=== PATIENT | male | born 1970 | race Caucasian/White ===

== ENCOUNTER → 2016-08-12 | Outpatient (CLI) | payer OTHER ==
--- NOTE | 2016-08-12 21:21 | REP ---
Clinical: Left groin pain. Technique: Real time malin scale ultrasound examination using linear high frequency transducer. Findings: The right inguinal canal on normal respiration and Valsalva is without evidence for herniation. Surrounding soft tissues are unremarkable and there is no evidence for fluid collection, mass lesion or adenopathy. The left inguinal canal on normal respiration and Valsalva demonstrates fat and soft tissue structure extending into the internal ring which was reducible on transducer pressure and suggests small hernia. Impression: Findings suggest a small reducible left inguinal hernia at the internal ring which may include small amount of fat and soft tissue/musculature. No definite bowel is identified herniating during examination. Signed by Luis Crespo MD 08/12/2016 09:13 P
== END ==
LOC: M RAD 10:28
PROVIDERS: ATTEND Physician Assistant
DX: K40.90 Unilateral inguinal hernia, without obstruction or gangrene, not specified as recurrent (principal)

== ENCOUNTER 2016-10-23 07:19 | Day surgery (SDC) | payer OTHER ==
[~2016-10-23] VITALS: Ht 188 cm; Wt 90.7 kg
[2016-10-23] MEDS ORDERED: LR 1,000 ML IV ONE (07:45)
[2016-10-23] MEDS ORDERED: LR 1,000 ML IV SCH ×2 (07:45→12:00)
[2016-10-23] MEDS ORDERED: PROPOFOL 200 MG/20 ML VIAL As Ordered ONE (09:20)
[2016-10-23] MEDS ORDERED: LIDOCAINE 2% INJ 100 MG/5 ML SDV (FOR ANES.) As Ordered ONE (09:20)
[2016-10-23] MEDS ORDERED: fentaNYL 250 MCG/5 ML INJECTION (J3010) As Ordered ONE (09:21)
[2016-10-23] MEDS ORDERED: MIDAZOLAM INJ 2 MG/2 ML VIAL (J2250) As Ordered ONE (09:21)
[2016-10-23] MEDS ORDERED: BUPIVACAINE HCL 0.25% 30 ML VIAL As Ordered ONE (09:22)
[2016-10-23] MEDS ORDERED: LIDOCAINE 1% SDV INJ 30 ML VIAL As Ordered ONE (09:22)
[2016-10-23] MEDS ORDERED: METOCLOPRAMIDE INJ 10MG/2ML VIAL (J2765) As Ordered ONE (10:07)
[2016-10-23] MEDS ORDERED: dexameTHASONE 4 MG/ML 1ML VIAL (J1100) As Ordered ONE (10:07)
[2016-10-23] MEDS ORDERED: KETOROLAC 60 MG/2 ML VIAL (J1885) As Ordered ONE (10:18)
[2016-10-23] MEDS ORDERED: HYDROmorphone HCL 2 MG/ML 1ML VIAL (J1170) As Ordered ONE (10:19)
[2016-10-23] MEDS ORDERED: LABETALOL HCL 100 MG/20 ML VIAL As Ordered ONE (11:03)
[2016-10-23] MEDS ORDERED: fentaNYL 100 MCG/2 ML INJECTION (J3010) IV PRN (12:00)
[2016-10-23] MEDS ORDERED: ONDANSETRON 4MG/2ML VIAL (J2405) IV PRN (12:00)
[2016-10-23] MEDS ORDERED: NORCO, ANEXSIA 5/325MG TABLET (HYDROcodone/ACETAMINOPHEN) PO PRN (12:00)
[2016-10-23] MEDS ORDERED: PERCOCET 5MG/325MG TAB As Ordered ONE (12:02)
[2016-10-23] MEDS: PERCOCET 5MG/325MG TAB PO PRN ×2 (12:08→13:15)
[2016-10-23 13:45] VITALS: BP 118/57
[2016-10-23] MEDS ORDERED: IBUPROFEN 600 MG TAB PO PRN (18:00)
--- NOTE | 2016-10-25 14:28 | RO ---
DATE OF PROCEDURE: 10/23/2016 PREOPERATIVE DIAGNOSIS: Left inguinal hernia. POSTOPERATIVE DIAGNOSIS: Left inguinal hernia. PROCEDURE PERFORMED: Left inguinal herniorrhaphy with Ultrapro mesh. SURGEON: Dr. Sadiq Lord ANESTHESIA: General with LMA. INDICATIONS FOR PROCEDURE: The patient is a 45-year-old man who has had some left inguinal discomfort. He had been studied with some imaging, and there was a suggestion of some fatty tissue in the left inguinal canal. Initially his discomfort was mild and he monitored this. He subsequently returned complaining that he had noticed increased discomfort. He did not have a definite hernia bulge beyond the external ring, but there did appear to be some fullness in the inguinal canal and he is now scheduled for a left inguinal herniorrhaphy. DESCRIPTION OF PROCEDURE: The patient was placed under general anesthesia using an LMA. The patient's lower abdomen, groins and genitalia were prepped and draped in a sterile fashion. An approximately 8-10 cm left lower quadrant skin incision was made obliquely over the course of the inguinal canal. This was deepened through the subcutaneous tissues using the cautery. The external oblique was exposed and opened in the direction of its fibers into the external ring. The spermatic cord was then isolated. He was found to have some fibrofatty tissue protruding at the internal ring along the spermatic cord. This fibrofatty tissue was dissected free from the cord up into the internal ring where it was transected with the cautery and this was sent as a permanent specimen, labeled preperitoneal fat. Interestingly, there was a small protrusion of fibrofatty tissue as essentially a direct hernia slightly medial to the normal course of the inguinal canal, but coming directly through the internal oblique muscle. This was about 2 cm in length and less than a centimeter in diameter. This was also excised, and this small defect was closed with several simple sutures of #2-0 Ethibond. A 6 x 11 cm piece of Ultrapro mesh was selected. This was lot number [id number]. This was trimmed to fit the inguinal floor. It was placed over the inguinal floor and sutured at the pubic tubercle with a #3-0 Prolene, which was carried along the lateral border of the mesh, suturing this to the shelving edge of the inguinal ligament. Medially, the mesh was tacked down to the underlying internal oblique with interrupted simple sutures of #3-0 Vicryl. The tails of the mesh were overlapped lateral to the spermatic cord and sutured with #3-0 Vicryl. This appeared to give a nice reinforcement of the inguinal floor. Approximately 20 mL of 0.25% Marcaine were infiltrated about the wound. The external oblique was closed with a running suture of #0 Vicryl. The subcutaneous tissues were approximated with #3-0 chromic and the skin edges were approximated with a running subcuticular #4-0 Vicryl and Steri-Strips. The patient tolerated the procedure well without apparent complication. He was awakened in the operating room, extubated and moved to the recovery room in stable condition. LIUDMILA
== END 2016-10-23 14:05 | disposition home or self-care (01) ==
LOC: M SDC 07:19
PROVIDERS: ATTEND Surgery
DX: K40.90 Unilateral inguinal hernia, without obstruction or gangrene, not specified as recurrent (principal); F17.210 Nicotine dependence, cigarettes, uncomplicated
CPT/HCPCS: 49585; 88302; C1781; J1100; J1170; J1885; J2250; J2765; J3010

== ENCOUNTER → 2017-10-19 | Outpatient (CLI) | payer BC | LOC: M RAD 13:31 | DX: M25.511 Pain in right shoulder (principal) | CPT/HCPCS: 73030 ==

== ENCOUNTER → 2018-08-13 | Outpatient (CLI) | payer BC ==
--- NOTE | 2018-08-13 14:28 | REP ---
Clinical: Abnormal pulmonary function tests . Comparison: 07/04/2013 . Technique: PA and lateral. Findings: The mediastinum and cardiac silhouette are normal. The lung moore are clear and without acute consolidation, effusion, or pneumothorax. The skeletal structures are intact and normal. Impression: 1. No acute cardiopulmonary process. Electronically Signed by Luis Crespo MD 08/13/2018 02:20 P
== END ==
LOC: M RAD 12:45
PROVIDERS: ATTEND Physician Assistant
DX: R94.2 Abnormal results of pulmonary function studies (principal)

== ENCOUNTER 2018-08-16 10:31 | Day surgery (SDC) | payer BC ==
[~2018-08-16] VITALS: Ht 188 cm; Wt 97.1 kg
[2018-08-16] MEDS ORDERED: LR 1,000 ML IV ONE (11:30)
[2018-08-16] MEDS ORDERED: fentaNYL 250 MCG/5 ML INJECTION (J3010) As Ordered ONE (12:36)
[2018-08-16] MEDS ORDERED: PROPOFOL 200 MG/20 ML VIAL As Ordered ONE (12:36)
[2018-08-16] MEDS ORDERED: MIDAZOLAM INJ 2 MG/2 ML VIAL (J2250) As Ordered ONE (12:36)
[2018-08-16] MEDS ORDERED: ROCURONIUM BROMIDE 50 MG/5 ML VIAL As Ordered ONE (12:36)
[2018-08-16] MEDS ORDERED: LIDOCAINE 2% INJ 100 MG/5 ML SDV (FOR ANES.) As Ordered ONE (12:36)
[2018-08-16] MEDS ORDERED: ONDANSETRON 4MG/2ML VIAL (J2405) As Ordered ONE (13:47)
[2018-08-16] MEDS ORDERED: KETOROLAC 60 MG/2 ML VIAL (J1885) As Ordered ONE (13:47)
[2018-08-16] MEDS ORDERED: dexameTHASONE 4 MG/ML 1ML VIAL (J1100) As Ordered ONE (13:47)
[2018-08-16] MEDS ORDERED: SUGAMMADEX SODIUM 500 MG/5 ML VIAL (BRIDION) As Ordered ONE (13:51)
[2018-08-16] MEDS ORDERED: ePHEDrine SULFATE 25 MG/5 ML(5MG/ML) SYRINGE As Ordered ONE (13:58)
[2018-08-16] MEDS: LIDOCAINE W/EPINEPHRINE 1% 20ML VIAL As Ordered ONE (14:06)
[2018-08-16] MEDS: CIPRODEX OTIC SUSP 7.5ML As Ordered ONE (14:06)
[2018-08-16] MEDS: EPINEPHrine 1MG/ML INJ 30ML MD-VIAL As Ordered ONE (14:06)
[2018-08-16] MEDS ORDERED: METOCLOPRAMIDE INJ 10MG/2ML VIAL (J2765) IV PRN (14:15)
[2018-08-16] MEDS ORDERED: LR 1,000 ML IV SCH ×2 (14:15)
[2018-08-16] MEDS ORDERED: ACETAMINOPH W/CODEINE #3 TAB UD PO PRN (14:15)
[2018-08-16] MEDS ORDERED: fentaNYL 100 MCG/2 ML INJECTION (J3010) IV PRN (14:15)
--- NOTE | 2018-08-16 14:36 | RO ---
DATE OF PROCEDURE: 08/16/2018 PREOPERATIVE DIAGNOSIS: Stenosis right external auditory canal. POSTOPERATIVE DIAGNOSIS: Stenosis right external auditory canal. OPERATIVE PROCEDURE: Right meatoplasty. SURGEON: Enrique Muse MD PROCUREMENT ENGINEER: ANESTHESIA: General anesthesia. DESCRIPTION OF PROCEDURE: Under general anesthesia, the ear was cleaned with Betadine and saline. I infiltrated with lidocaine with epinephrine. I made an incision the periosteum. I then removed the bone both with a curette and with a drill. I drilled down the anterior wall so I had a good view of the tympanic membrane. There was a lot of debris behind the area, which I cleaned with suction and irrigation. Tympanic membrane was intact. I returned the skip flap to its original position. The patient tolerated the procedure well. Minimal blood loss. I put Ciprodex drops in the ear and then Autopour dressing. The patient transferred to the recovery room in excellent condition.
[2018-08-16 15:20] VITALS: BP 125/74
== END 2018-08-16 15:30 | disposition home or self-care (01) ==
LOC: M SDC 10:31
PROVIDERS: ATTEND Otolaryngology
DX: H61.301 Acquired stenosis of right external ear canal, unspecified (principal); R06.83 Snoring; R06.02 Shortness of breath; Z72.0 Tobacco use
CPT/HCPCS: 69310; 88304; J1100; J1885; J2250; J2405; J3010

== ENCOUNTER → 2018-11-30 | Outpatient (CLI) | payer BC ==
[~2018-11-30] MED LIST: DOXY100C37 PO; METHACHOLINE KIT (J7674) INH ONE; POLYSOL OP
--- NOTE | 2018-11-30 15:42 | PFTRPT ---
Height: 74.00 Inches Weight: 211.00 Lbs BSA: 2.22 Diagnosis: R06 DATE OF PROCEDURE: 11/30/2018 ORDERED BY: Hilario Graham PA-C INTERPRETATION: Study of excellent technical quality. Under protocol, methacholine was administered. At a dose of 2.5 mg or 13.875 CDUs, a 34% decline in the FEV1 was noted. PC of 0.54 is significant. Flow rates did return to baseline post bronchodilator administration. IMPRESSION: Positive methacholine challenge study. MTDD
== END ==
LOC: M CARPUL 14:54
PROVIDERS: ATTEND Physician Assistant
DX: R06.00 Dyspnea, unspecified (principal); R94.2 Abnormal results of pulmonary function studies
CPT/HCPCS: 94070; J7674

== ENCOUNTER → 2018-12-01 | Outpatient (CLI) | payer BC ==
--- NOTE | 2018-12-02 08:13 | REP ---
Clinical: Dyspnea with abnormal pulmonary function tests. Technique: Axial noncontrast images from the thoracic inlet to the upper abdomen with coronal and sagittal re-formations. Findings: Lung moore demonstrate very subtle early emphysematous changes involving the bilateral upper lobes. Lung moore are otherwise well aerated, relatively symmetric and clear. No acute consolidation, nodule or mass lesion. No pleural effusion. No pneumothorax. No significant adenopathy. Tracheobronchial tree is patent. Mediastinum demonstrates normal thoracic aorta, pulmonary vasculature and heart/pericardium. Surrounding musculoskeletal structures are intact. Impression: Very subtle early emphysematous changes. Electronically Signed by Luis Crespo MD 12/02/2018 08:05 A
== END ==
LOC: M RAD 12:47
PROVIDERS: ATTEND Physician Assistant
DX: R06.00 Dyspnea, unspecified (principal); R94.2 Abnormal results of pulmonary function studies; J43.9 Emphysema, unspecified

== ENCOUNTER → 2018-12-12 | Outpatient (CLI) | payer BC ==
--- NOTE | 2018-12-14 20:41 | SLEEPCENT ---
DATE OF PROCEDURE: 12/12/2018 ORDERED BY: Hilario Graham PA-C Nocturnal polysomnography was performed for evaluation of sleep physiology in this patient with a history of excessive somnolence and nonrestorative sleep. 7 hours and 56 minutes of data were reviewed. There were 312 minutes of sleep identified. Sleep latency was prolonged at 87.5 minutes. Rapid eye movement (REM) latency was prolonged at 185.5 minutes. Sleep architecture showed fragmentation. There were two rapid eye movement (REM) cycles. Overall sleep efficiency was 66.5%. The electrocardiogram showed a sinus rhythm with an average heart rate of 68 beats per minute. EEG showed some alpha intrusion, otherwise normal waveforms for awake and sleep stages. There were 143 respiratory events identified of 10 seconds in duration or greater for an apnea-hypopnea index of 27.5. The events were primarily obstructive; however, 52 of 143 events were central or mixed in nature. The events were not exclusive to sleep stage. They were more frequent in the supine posture. Arousals from respiratory events occurred 7.3 times per hour and oxygen desaturations were seen into the 70s. There was some limb activity but arousals from limb events were few. Snoring was noted over the course of the study. IMPRESSION: Severe complex obstructive sleep apnea syndrome (G47.33, G47.31). Apnea-hypopnea index 27.5. RECOMMENDATIONS: The patient should be encouraged to return to the sleep disorder center for pressure therapy. In the interim alcohol and sedative avoidance should be practiced and caution exercised during the operation of motor vehicles. Given the occurrence of central events, a bilevel device and backup rate may be necessary during titration.
== END ==
LOC: M SLEEP 20:00
PROVIDERS: ATTEND Physician Assistant
DX: R40.0 Somnolence (principal)

== ENCOUNTER → 2018-12-26 | Outpatient (CLI) | payer BC ==
[~2018-12-26] MED LIST changes: -METHACHOLINE KIT (J7674) INH ONE
--- NOTE | 2019-01-01 08:57 | SLEEPCENT ---
DATE OF STUDY: 12/26/2018 ORDERED BY: Luis Graham Nocturnal polysomnography was performed for the titration of pressure therapy in this patient with obstructive sleep apnea syndrome and apnea-hypopnea index of 27.5. For testing, the patient was fit with a ResMed AirFit N20 nasal mask of medium size and 4 cm of water pressure were applied to the circuit and the lights were extinguished. 7 hours and 1 minute of data were reviewed. There were 373.5 minutes of sleep identified. Sleep latency was mildly prolonged at 18 minutes. Rapid eye movement (REM) latency was normal at 62 minutes. Sleep architecture was good with 3 REM cycles. Overall sleep efficiency was 89.7%. The patient's electrocardiogram showed a sinus rhythm with an average heart rate of 54 beats per minute. Electroencephalogram (EEG) showed normal waveforms for awake and sleep. Respiratory events were fully palliated with C-PAP at a pressure +5 and remaining measures of sleep physiology were normal. IMPRESSION: Obstructive sleep apnea syndrome (G47.33). RECOMMENDATION: Nightly use of pressure therapy at 5 cm of water.
== END ==
LOC: M SLEEP 20:00
PROVIDERS: ATTEND Physician Assistant
DX: G47.33 Obstructive sleep apnea (adult) (pediatric) (principal)

== ENCOUNTER 2019-01-04 06:27 | Emergency (ER) | payer BC ==
[~2019-01-04] VITALS: Ht 188 cm; Wt 95.5 kg
[2019-01-04] MEDS ORDERED: DOXY100C37 PO (08:14)
[2019-01-04] MEDS ORDERED: POLYSOL OP (08:14)
[2019-01-04 08:20] VITALS: BP 144/82
== END 2019-01-04 08:45 | disposition home or self-care (01) ==
LOC: M ED 06:27
DX: H04.012 Acute dacryoadenitis, left lacrimal gland (principal); H10.32 Unspecified acute conjunctivitis, left eye; G47.30 Sleep apnea, unspecified; J43.9 Emphysema, unspecified; F17.200 Nicotine dependence, unspecified, uncomplicated; Z79.899 Other long term (current) drug therapy

== ENCOUNTER 2020-02-13 18:50 | Emergency (ER) | payer BC ==
[~2020-02-13] VITALS: Ht 188 cm; Wt 98.6 kg
[2020-02-13] MEDS ORDERED: CHAN1PAK13 PO (19:11)
[2020-02-13] MEDS ORDERED: NYST50SS PO (20:36)
[2020-02-13] MEDS ORDERED: AMOX500C PO (20:36)
[2020-02-13 20:45] VITALS: BP 143/87
[2020-02-13] MEDS ORDERED: AMOXICILLIN 500 MG CAP PO ONE (20:45)
== END 2020-02-13 21:04 | disposition home or self-care (01) ==
LOC: M ED 18:50
DX: J02.0 Streptococcal pharyngitis (principal); B37.0 Candidal stomatitis; F17.200 Nicotine dependence, unspecified, uncomplicated

== ENCOUNTER 2021-05-31 10:41 | Emergency (ER) | payer BC ==
[~2021-05-31] VITALS: Ht 185.4 cm; Wt 103.0 kg
[~2021-05-31 10:41] MED LIST changes: +AMOX500C PO; +CHAN1PAK13 PO; +DOXY-443 PO; -DOXY100C37 PO; +NYST50SS PO
[2021-05-31 10:42] VITALS: BP 122/65
[2021-05-31] MEDS ORDERED: PROPARACAINE 0.5% OPHTH SOL 15ML OS ONE (12:10)
[2021-05-31] MEDS ORDERED: FLUORESCEIN OPHTH 1 MG STRIP OS ONE (12:10)
[2021-05-31] MEDS ORDERED: POLYSOL OP (13:17)
== END 2021-05-31 13:38 | disposition home or self-care (01) ==
LOC: M ED 10:41
DX: T15.02XA Foreign body in cornea, left eye, initial encounter (principal); Y92.89 Other specified places as the place of occurrence of the external cause; Y93.89 Activity, other specified; Z79.899 Other long term (current) drug therapy

== ENCOUNTER 2021-06-06 13:31 | Emergency (ER) | payer BC ==
[~2021-06-06] VITALS: Ht 188 cm; Wt 102.9 kg
[2021-06-06 13:32] VITALS: BP 140/78
== END 2021-06-06 15:39 | disposition home or self-care (01) ==
LOC: M ED 13:31
DX: S62.501B Fracture of unspecified phalanx of right thumb, initial encounter for open fracture (principal); X58.XXXA Exposure to other specified factors, initial encounter; Y92.89 Other specified places as the place of occurrence of the external cause; Y93.89 Activity, other specified; Y99.0 Civilian activity done for income or pay; E11.9 Type 2 diabetes mellitus without complications; I10 Essential (primary) hypertension; F41.9 Anxiety disorder, unspecified; G47.33 Obstructive sleep apnea (adult) (pediatric); J43.9 Emphysema, unspecified; J45.909 Unspecified asthma, uncomplicated; Z87.891 Personal history of nicotine dependence

== ENCOUNTER → 2021-07-22 | Outpatient (CLI) | payer BC | LOC: M RAD 14:05 | PROVIDERS: ATTEND Physician Assistant | DX: Z12.2 Encounter for screening for malignant neoplasm of respiratory organs (principal); Z87.891 Personal history of nicotine dependence; J43.2 Centrilobular emphysema; R91.1 Solitary pulmonary nodule ==

== ENCOUNTER → 2022-03-24 | Outpatient (CLI) | payer BC ==
[~2022-03-24] MED LIST changes: +NYST-38 PO; -NYST50SS PO
[2022-03-24 16:17] LABS: ALBUMIN 3.9 G/DL (3.2-5.2); ALKALINE PHOSPHATASE 80 U/L (46-116); ALT/SGPT 41 U/L (7.0-40); AST/SGOT 24 U/L (<34); BILIRUBIN,TOTAL 0.6 MG/DL (0.3-1.2); BLOOD UREA NITROGEN 16 MG/DL (9-23); CALCIUM LEVEL 9.6 MG/DL (8.5-10.1); CARBON DIOXIDE LEVEL 28 MMOL/L (20-31); CHLORIDE LEVEL 104 MMOL/L (98-107); CHOLESTEROL LEVEL 149 MG/DL (<200); CHOLESTEROL RISK RATIO 2.95 (<5); CREATININE FOR GFR 0.75 MG/DL (0.70-1.30); GLOMERULAR FILTRATION RATE > 60.0 (>56); GLUCOSE, FASTING 133 MG/DL (60-100); HDL CHOLESTEROL 50.5 MG/DL (>40); LDL CHOLESTEROL 71.7 MG/DL (<100); NON-HDL-C 99 MG/DL; POTASSIUM SERUM 4.4 MMOL/L (3.5-5.1); SODIUM LEVEL 138 MMOL/L (136-145); TOTAL PROTEIN 6.9 G/DL (5.7-8.2); TRIGLYCERIDES LEVEL 134 MG/DL (<150)
[2022-03-24 17:45] LABS: HEMOGLOBIN A1c 6.5 % (4.0-6.0)
== END ==
LOC: M LAB 14:55
PROVIDERS: ATTEND Physician Assistant
DX: E11.9 Type 2 diabetes mellitus without complications (principal); E78.5 Hyperlipidemia, unspecified; I10 Essential (primary) hypertension

== ENCOUNTER → 2022-05-07 | Outpatient (CLI) | payer BC ==
[~2022-05-07] MED LIST changes: +BUPR-69 PO; +LEXA1TAB2 PO; +LISI20TA33 PO; +METF500T13 PO; +PROP60CA PO; +ROSU10TA6 PO; +TADA5TAB PO
== END ==
LOC: M LABSMTC 10:10
PROVIDERS: ATTEND Anesthesiology
DX: Z01.812 Encounter for preprocedural laboratory examination (principal); Z11.52 Encounter for screening for COVID-19

== ENCOUNTER 2022-05-12 06:32 | Day surgery (SDC) | payer BC ==
[~2022-05-12] VITALS: Ht 188 cm; Wt 102.5 kg
[~2022-05-12 06:32] MED LIST changes: +NS 1,000 ML IV ONE
[2022-05-12] MEDS ORDERED: GLYCOPYRROLATE INJ 0.2 MG/ML 2 ML VIAL As Ordered ONE (07:08)
[2022-05-12] MEDS ORDERED: propofoL 200 MG/20 ML VIAL As Ordered ONE (07:08)
[2022-05-12] MEDS ORDERED: LIDOCAINE 2% 100MG/5ML SDV (FOR ANES.) As Ordered ONE (07:08)
[2022-05-12] MEDS ORDERED: fentaNYL 100 MCG/2 ML INJECTION As Ordered ONE (07:11)
[2022-05-12 08:22] VITALS: BP 114/59
== END 2022-05-12 08:29 | disposition home or self-care (01) ==
LOC: M OPP 06:32
PROVIDERS: ATTEND Internal Medicine Gastroenterology
DX: Z12.11 Encounter for screening for malignant neoplasm of colon (principal); Z86.010 Personal history of colon polyps; Z80.0 Family history of malignant neoplasm of digestive organs; K63.5 Polyp of colon; K64.8 Other hemorrhoids; K29.70 Gastritis, unspecified, without bleeding; K21.00 Gastro-esophageal reflux disease with esophagitis, without bleeding; J44.9 Chronic obstructive pulmonary disease, unspecified; F32.9 Major depressive disorder, single episode, unspecified; F41.9 Anxiety disorder, unspecified; G47.33 Obstructive sleep apnea (adult) (pediatric); I10 Essential (primary) hypertension; E78.00 Pure hypercholesterolemia, unspecified; Z99.89 Dependence on other enabling machines and devices; Z79.02 Long term (current) use of antithrombotics/antiplatelets; Z79.1 Long term (current) use of non-steroidal anti-inflammatories (NSAID); Z79.51 Long term (current) use of inhaled steroids; Z79.84 Long term (current) use of oral hypoglycemic drugs; Z79.899 Other long term (current) drug therapy
CPT/HCPCS: 43239; 45385; 88305; J3010

== ENCOUNTER → 2022-06-23 | Outpatient (CLI) | payer BC ==
[~2022-06-23] MED LIST changes: -NS 1,000 ML IV ONE
[2022-06-23 16:01] LABS: HEMOGLOBIN A1c 6.9 % (4.0-6.0)
== END ==
LOC: M LAB 14:42
PROVIDERS: ATTEND Physician Assistant
DX: E11.9 Type 2 diabetes mellitus without complications (principal)

== ENCOUNTER → 2022-09-22 | Outpatient (CLI) | payer BC | LOC: M RAD 15:01 | PROVIDERS: ATTEND Physician Assistant | DX: Z87.891 Personal history of nicotine dependence (principal) ==

== ENCOUNTER → 2023-01-05 | Outpatient (CLI) | payer BC ==
[2023-01-05 12:32] LABS: SEMEN APPEARANCE OPAQUE (OPAQUE); SEMEN VISCOSITY VISCOUS (LIQUID); SEMEN VOLUME 1.2 ML (2.0-5.0); SEMEN WBC <=1 M/ml (<=1 M/ml); SEMEN pH 8.5 (7.0-8.0)
== END ==
LOC: M LAB 11:12
PROVIDERS: ATTEND Physician Assistant
DX: E11.9 Type 2 diabetes mellitus without complications (principal); N46.01 Organic azoospermia

== ENCOUNTER → 2023-04-06 | Outpatient (CLI) | payer BC ==
[2023-04-06 15:48] LABS: HEMATOCRIT 42.3 % (42.0-52.0); HEMOGLOBIN 14.4 g/dl (13.5-17.5); MEAN CORPUSCULAR HEMOGLOBIN 30.5 pg (27.0-33.0); MEAN CORPUSCULAR VOLUME 89.6 fl (80.0-96.0); PLATELET COUNT, AUTOMATED 173 10^3/uL (150-450); RED BLOOD COUNT 4.72 10^6/uL (4.30-6.10)
[2023-04-06 16:15] LABS: ALKALINE PHOSPHATASE 84 U/L (46-116); ALT/SGPT 29 U/L (7.0-40); AST/SGOT 9 U/L (<34); BILIRUBIN,TOTAL 0.5 MG/DL (0.3-1.2); BLOOD UREA NITROGEN 17 MG/DL (9-23); CALCIUM LEVEL 9.3 MG/DL (8.5-10.1); CARBON DIOXIDE LEVEL 30 MMOL/L (20-31); CHLORIDE LEVEL 102 MMOL/L (98-107); CHOLESTEROL LEVEL 168 MG/DL (<200); CHOLESTEROL RISK RATIO 3.11 (<5); CREATININE FOR GFR 0.71 MG/DL (0.70-1.30); GLOMERULAR FILTRATION RATE > 60.0 (>56); GLUCOSE, FASTING 130 MG/DL (60-100); LDL CHOLESTEROL 89.4 MG/DL (<100); POTASSIUM SERUM 3.9 MMOL/L (3.5-5.1); SODIUM LEVEL 136 MMOL/L (136-145); TOTAL PROTEIN 7.1 G/DL (5.7-8.2); TRIGLYCERIDES LEVEL 123 MG/DL (<150)
[2023-04-07 07:17] LABS: WHITE BLOOD COUNT 5.8 10^3/uL (4.0-10.0)
== END ==
LOC: M RAD 14:42
PROVIDERS: ATTEND Physician Assistant
DX: E11.9 Type 2 diabetes mellitus without complications (principal); E78.5 Hyperlipidemia, unspecified; N46.01 Organic azoospermia; I10 Essential (primary) hypertension; M79.671 Pain in right foot

== ENCOUNTER → 2023-07-20 | Outpatient (CLI) | payer BC ==
[~2023-07-20] MED LIST changes: +DOXY-323 PO; -DOXY-443 PO; -ROSU10TA6 PO; +ROSU10TA61 PO
== END ==
LOC: M LAB 12:02
PROVIDERS: ATTEND Physician Assistant
DX: E11.9 Type 2 diabetes mellitus without complications (principal)

== ENCOUNTER → 2023-10-26 | Outpatient (REF) | payer BC ==
[2023-10-26 12:10] LABS: SEMEN APPEARANCE OPAQUE (OPAQUE); SEMEN VISCOSITY LIQUID (LIQUID)
[2023-10-26 12:11] LABS: SPERM CONCENTRATION 5.8 M/ml (>=15.0); WBC CONCENTRATION <=1 M/ml (<=1 M/ml)
== END ==
LOC: M LAB REF 11:38
PROVIDERS: ATTEND Obstetrics & Gynecology
DX: N46.9 Male infertility, unspecified (principal)

== ENCOUNTER → 2023-10-26 | Outpatient (CLI) | payer BC ==
[2023-10-26 12:40] LABS: HEMATOCRIT 45.2 % (42.0-52.0); HEMOGLOBIN 15.5 g/dl (13.5-17.5); MEAN CORPUSCULAR HEMOGLOBIN 29.9 pg (27.0-33.0); MEAN CORPUSCULAR HGB CONC 34.3 g/dl (32.0-36.5); MEAN CORPUSCULAR VOLUME 87.1 fl (80.0-96.0); PLATELET COUNT, AUTOMATED 177 10^3/uL (150-450); RED BLOOD COUNT 5.19 10^6/uL (4.30-6.10); WHITE BLOOD COUNT 6.2 10^3/uL (4.0-10.0)
[2023-10-26 13:00] LABS: HEMOGLOBIN A1c 7.9 % (4.0-6.0)
[2023-10-26 13:06] LABS: PROSTATIC SPECIFIC AG MONITOR 1.19 NG/ML (< 4.00)
[2023-10-26 13:08] LABS: ALBUMIN 4.2 G/DL (3.2-5.2); ALKALINE PHOSPHATASE 94 U/L (46-116); ALT/SGPT 41 U/L (7.0-40); AST/SGOT 16 U/L (<34); BILIRUBIN,TOTAL 0.9 MG/DL (0.3-1.2); BLOOD UREA NITROGEN 15 MG/DL (9-23); CALCIUM LEVEL 9.7 MG/DL (8.5-10.1); CARBON DIOXIDE LEVEL 28 MMOL/L (20-31); CHLORIDE LEVEL 103 MMOL/L (98-107); CHOLESTEROL LEVEL 148 MG/DL (<200); CHOLESTEROL RISK RATIO 3.22 (<5); CREATININE FOR GFR 0.85 MG/DL (0.70-1.30); GLOMERULAR FILTRATION RATE > 60.0 (>56); GLUCOSE, FASTING 157 MG/DL (60-100); HDL CHOLESTEROL 45.9 MG/DL (>40); LDL CHOLESTEROL 85.3 MG/DL (<100); NON-HDL-C 102.1 MG/DL; POTASSIUM SERUM 4.3 MMOL/L (3.5-5.1); SODIUM LEVEL 137 MMOL/L (136-145); TOTAL PROTEIN 7.3 G/DL (5.7-8.2); TRIGLYCERIDES LEVEL 84 MG/DL (<150)
[2023-10-26 13:10] LABS: THYROID STIMULATING HORMONE 1.589 uIU/ML (0.55-4.78)
== END ==
LOC: M LAB 11:41
PROVIDERS: ATTEND Physician Assistant
DX: E11.9 Type 2 diabetes mellitus without complications (principal); E78.5 Hyperlipidemia, unspecified; R35.1 Nocturia; I10 Essential (primary) hypertension

== ENCOUNTER → 2023-11-13 | Outpatient (CLI) | payer BC | LOC: M RAD 14:32 | PROVIDERS: ATTEND Physician Assistant | DX: Z12.2 Encounter for screening for malignant neoplasm of respiratory organs (principal); Z87.891 Personal history of nicotine dependence; R91.8 Other nonspecific abnormal finding of lung field ==

== ENCOUNTER → 2024-01-25 | Outpatient (CLI) | payer BC ==
[~2024-01-25] MED LIST changes: -DOXY-323 PO; +DOXY-441 PO
[2024-01-25 11:12] LABS: HEMOGLOBIN A1c 6.5 % (4.0-6.0)
== END ==
LOC: M LAB 10:20
PROVIDERS: ATTEND Physician Assistant
DX: E11.9 Type 2 diabetes mellitus without complications (principal)

== ENCOUNTER → 2024-05-10 | Outpatient (CLI) | payer BC ==
[~2024-05-10] MED LIST changes: -TADA5TAB PO; +TADA5TAB94 PO
[2024-05-11 07:05] LABS: HEMOGLOBIN A1c 6.2 % (4.0-6.0)
== END ==
LOC: M LAB 15:25
PROVIDERS: ATTEND Physician Assistant
DX: E11.9 Type 2 diabetes mellitus without complications (principal)

== ENCOUNTER → 2024-10-14 | Outpatient (CLI) | payer BC ==
[~2024-10-14] MED LIST changes: +TADA5TAB2 PO; -TADA5TAB94 PO
[2024-10-14 12:07] LABS: PLATELET COUNT, AUTOMATED 174 10^3/uL (150-450)
[2024-10-14 12:08] LABS: PROSTATIC SPECIFIC AG MONITOR 0.81 NG/ML (< 4.00)
[2024-10-14 12:09] LABS: APPEARANCE, URINE CLEAR (CLEAR); BACTERIA, URINE AUTO NEGATIVE (NEGATIVE); BILIRUBIN, URINE AUTO NEGATIVE (NEGATIVE); BLOOD, URINE BLOOD NEGATIVE (NEGATIVE); GLUCOSE, URINE (UA) AUTO 3+ mg/dL (NEGATIVE); KETONE, URINE AUTO NEGATIVE (NEGATIVE); LEUKOCYTE ESTERASE, URINE AUTO NEGATIVE (NEGATIVE); MUCUS, URINE SMALL (NEGATIVE); NITRITE, URINE AUTO NEGATIVE (NEGATIVE); PROTEIN, URINE AUTO NEGATIVE (NEGATIVE); RBC, URINE AUTO 0 /HPF (0-3); SPECIFIC GRAVITY URINE AUTO 1.027 (1.002-1.035); SQUAMOUS EPITHELIAL CELL UR AU 0 /HPF (0-6); UROBILINOGEN, URINE AUTO 0.2 mg/dL (0.0-2.0); WBC, URINE AUTO 0 /HPF (0-3)
[2024-10-14 12:10] LABS: ALT/SGPT 50 U/L (7.0-40); AST/SGOT 27 U/L (<34); CALCIUM LEVEL 10.2 MG/DL (8.5-10.1); CARBON DIOXIDE LEVEL 32 MMOL/L (20-31); CHLORIDE LEVEL 102 MMOL/L (98-107); CHOLESTEROL LEVEL 137 MG/DL (<200); CHOLESTEROL RISK RATIO 2.66 (<5); CREATININE FOR GFR 0.89 MG/DL (0.70-1.30); GLOMERULAR FILTRATION RATE > 90.0 (>56); LDL CHOLESTEROL 71.8 MG/DL (<100); NON-HDL-C 85.6 MG/DL; POTASSIUM SERUM 4.8 MMOL/L (3.5-5.1); SODIUM LEVEL 142 MMOL/L (136-145); TRIGLYCERIDES LEVEL 69 MG/DL (<150)
[2024-10-14 12:51] LABS: ESTIMATED AVERAGE GLUCOSE 120.0 MG/DL (60-110)
== END ==
LOC: M WUC 09:36
PROVIDERS: ATTEND Physician Assistant
DX: E11.9 Type 2 diabetes mellitus without complications (principal); E78.5 Hyperlipidemia, unspecified; R35.1 Nocturia; I10 Essential (primary) hypertension; M54.6 Pain in thoracic spine

== ENCOUNTER → 2024-12-15 | Outpatient (CLI) | payer BC | LOC: M RAD 10:17 | PROVIDERS: ATTEND Physician Assistant | DX: Z87.891 Personal history of nicotine dependence (principal) ==